=== PATIENT | male | born 1980 | race African-American/Black ===

== ENCOUNTER 2023-12-09 23:30 | Emergency (ER) | payer MEDICAID ==
[~2023-12-09] VITALS: Ht 175.3 cm; Wt 70.0 kg
[2023-12-09 23:34] VITALS: BP 141/88; PULSE 100; RESP 18; O2SAT 98
[2023-12-10] MEDS ORDERED: ACETAMINOPHEN 325MG TABLET PO ONE (01:15)
[2023-12-10 02:28] VITALS: TEMP 98.2
[2023-12-10] MEDS ORDERED: IBUP-2029 MT (02:53)
== END 2023-12-10 03:17 | disposition home or self-care (01) ==
LOC: ER 23:30
DX: S83.92XA Sprain of unspecified site of left knee, initial encounter (principal); S83.91XA Sprain of unspecified site of right knee, initial encounter; S39.012A Strain of muscle, fascia and tendon of lower back, initial encounter; V89.2XXA Person injured in unspecified motor-vehicle accident, traffic, initial encounter; Y93.89 Activity, other specified; Y92.89 Other specified places as the place of occurrence of the external cause; Y99.8 Other external cause status
CPT/HCPCS: 72100; 73030; 73502; 73560; 99284